=== PATIENT | female | born 1980 | race American Indian/Alaskan Native ===

== ENCOUNTER 2016-04-15 14:07 | Emergency (ER) | payer MEDICAID ==
[2016-04-15] MEDS ORDERED: TORADOL IM ONE (17:37)
[2016-04-15] MEDS ORDERED: DECADRON IM ONE (17:37)
[2016-04-15] MEDS ORDERED: FLEXERIL PO ONE (17:37)
--- NOTE | 2016-04-15 18:10 | Emergency Department Report ---
HPI - General Chief Complaint: Back Pain/Injury Time Seen by Provider: 04/15/16 17:27 - HPI HPI: 36-year-old female presents today with lower back pain that worsened 2 days ago. Patient has history of herniated disc and was diagnosed in October 2015. She states she hasn't followed up with her orthopedic/spine doctor since. Patient states that she has lower back pain on and off every day. Positive for radiation down right leg. Positive for history of sciatica. Tried Tylenol and ibuprofen without relief. Describes her pain as a 10 out of 10 constant, shooting, throbbing pain. Denies numbness, weakness, paresthesias. Denies recent injury or trauma. Denies bowel or bladder incontinence. Denies fever, chills, nausea, vomiting, chest pain, shortness of breath, abdominal pain, urinary symptoms. ED Past Medical Hx - Past Medical History Hx Hypertension: Yes Hx Asthma: Yes Additional medical history: fibroids. Chronic back pain - Surgical History Past Surgical History?: No - Social History Smoking Status: Never Smoker Substance Use Type: Marijuana - Medications Home Medications: Home Medications Medication Instructions Recorded Confirmed Last Taken Type Butalb/Acetaminophen/Caffeine 1 each PO Q6H PRN #25 capsule 08/21/14 03/18/15 Unknown Rx [Fioricet 50-300-40 mg Capsule] Lisinopril [Zestril TAB] 5 mg PO QHS #30 tablet 08/21/14 03/18/15 Unknown Rx Diazepam Tab [Valium] 5 mg PO Q8H PRN #21 tablet 03/19/15 Unknown Rx HYDROcodone/APAP 10-325 [[place] 1 each PO Q6HR PRN #30 tablet 03/19/15 Unknown Rx 10/325] Ibuprofen [Motrin 800 MG tab] 800 mg PO Q8HR #45 tablet 03/19/15 Unknown Rx methylPREDNISolone [Medrol] 4 mg PO QAM #1 packet 01/09/16 Unknown Rx traMADol [Ultram] 50 mg PO Q6HR PRN #20 tablet 01/09/16 Unknown Rx Cyclobenzaprine [Flexeril 10 MG 10 mg PO Q8H PRN #21 tablet 04/15/16 Unknown Rx TAB] Naproxen [Naprosyn] 500 mg PO BID #30 tablet 04/15/16 Unknown Rx Prednisone [predniSONE 10 mg 10 mg PO .TAPER #1 tab.ds.pk 04/15/16 Unknown Rx (6-Day Pack, 21 Tabs)] ED Review of Systems ROS: Stated complaint: BACK PAIN Other details as noted in HPI Constitutional: denies: chills, fever, malaise Eyes: denies: eye pain ENT: denies: ear pain, throat pain, congestion Respiratory: denies: cough, shortness of breath, wheezing Cardiovascular: denies: chest pain, palpitations Endocrine: no symptoms reported Gastrointestinal: denies: abdominal pain, nausea, vomiting Genitourinary: denies: urgency, dysuria, frequency, hematuria Musculoskeletal: back pain Neurological: denies: headache, weakness, numbness, paresthesias Physical Exam - Physical Exam Vital Signs: Vital Signs 04/15/16 04/15/16 14:19 17:19 Temperature 98.5 F 98.8 F Pulse Rate 105 H 100 H Respiratory 20 20 Rate Blood Pressure 136/85 Blood Pressure 130/88 [Right] O2 Sat by Pulse 99 100 Oximetry Physical Exam: GENERAL: The patient is well-developed and well-nourished. Patient is in NAD. HEAD: Normocephalic. Atraumatic. CHEST/LUNGS: Clear to auscultation throughout. HEART/CARDIOVASCULAR: Regular rate and rhythm. ABDOMEN: Abdomen is soft, nontender. No guarding or rebound tenderness. EXTREMITIES: Full ROM. Peripheral pulses intact. Capillary refill less than 2 seconds. BACK: Full ROM. Positive for midline tenderness lumbar region, chronic. Right- sided paraspinal tenderness of lumbar region. Tenderness to palpation of the right sciatic notch. Negative straight leg raise bilaterally. ED Course Vital Signs 04/15/16 04/15/16 14:19 17:19 Temperature 98.5 F 98.8 F Pulse Rate 105 H 100 H Respiratory 20 20 Rate Blood Pressure 136/85 Blood Pressure 130/88 [Right] O2 Sat by Pulse 99 100 Oximetry ED Medical Decision Making - Lab Data Vital Signs 04/15/16 04/15/16 14:19 17:19 Temperature 98.5 F 98.8 F Pulse Rate 105 H 100 H Respiratory 20 20 Rate Blood Pressure 136/85 Blood Pressure 130/88 [Right] O2 Sat by Pulse 99 100 Oximetry - Medical Decision Making 36-year-old female presents today with acute onset of chronic lower back pain with sciatica. Patient was given Flexeril, Toradol and Decadron and reported symptomatic relief. Patient is in no acute distress at this time. She will be discharged home and is encouraged to follow up with a primary care provider. She will be sent home on Flexeril, steroid pack and Naprosyn and] is encouraged to return to the emergency room for any worsening symptoms. Critical care attestation.: If time is entered above; I have spent that time in minutes in the direct care of this critically ill patient, excluding procedure time. ED Disposition Clinical Impression: Chronic lower back pain Qualifiers: Back pain laterality: midline Sciatica presence: without sciatica Qualified Code(s): M54.5 - Low back pain; G89.29 - Other chronic pain Sciatica Qualifiers: Laterality: right Qualified Code(s): M54.31 - Sciatica, right side Disposition: DISCHARGED TO HOME OR SELFCARE Is pt being admited?: No Does the pt Need Aspirin: No Condition: Stable Instructions: Chronic Back Pain (ED), Sciatica (ED) Additional Instructions: Follow-up with orthopedics for pain management. Return to the emergency department if symptoms worsen. Prescriptions: Cyclobenzaprine [Flexeril 10 MG TAB] 10 mg PO Q8H PRN #21 tablet PRN Reason: Muscle Spasm Naproxen [Naprosyn] 500 mg PO BID #30 tablet Prednisone [predniSONE 10 mg (6-Day Pack, 21 Tabs)] 10 mg PO .TAPER #1 tab.ds.pk Referrals: NETO PERES MD [Primary Care Provider] - 3-5 Days CHRISTIANA GAYLE MD [Staff Physician] - 3-5 Days Forms: Work/School Release Form(ED), Accompanied Note Time of Disposition: 18:11
[2016-04-15 18:45] VITALS: BP 124/82
== END 2016-04-15 18:45 | disposition home or self-care (01) ==
LOC: ED 14:07
DX: M54.31 Sciatica, right side (principal); M54.5 Low back pain; G89.29 Other chronic pain; I10 Essential (primary) hypertension; J45.909 Unspecified asthma, uncomplicated; F12.10 Cannabis abuse, uncomplicated
CPT/HCPCS: 96372; 99282; J1100; J1885

== ENCOUNTER 2017-02-25 13:33 | Emergency (ER) | payer MEDICAID ==
[2017-02-25 16:11] LABS: Hematocrit 38.1 % (30.3-42.9); Hemoglobin 12.8 gm/dl (10.1-14.3); Mean Corpuscular HGB Conc 34 % (30-34); Mean Corpuscular Hemoglobin 35 pg (28-32); Mean Corpuscular Volume 104 fl (79-97); Platelet Count 168 K/mm3 (140-440); Red Blood Count 3.68 M/mm3 (3.65-5.03); Red Cell Distribution Width 12.9 % (13.2-15.2)
--- NOTE | 2017-02-25 16:22 | Emergency Department Report ---
Chief Complaint: Back Pain/Injury Stated Complaint: BACK AND RIGHT SIDE PAIN Time Seen by Provider: 02/25/17 16:15 - HPI History of Present Illness: Patient with H/O chronic back pain due to herniated disc presents to ED with c/ o worsening pain with radiation into right leg, but states that today she had 1 episode of urinary incontinence; denies recent injuries or trauma, saddle paresthesias, bowel incontinence, dysuria, hematuria, abdominal pain, N/V/D, and vaginal bleeding or discharge - ROS Review of Systems: Negative except for those stated in HPI - Exam Vital Signs: Vital Signs 02/25/17 15:52 Temperature 99.1 F Pulse Rate 73 Respiratory 18 Rate Blood Pressure 117/71 O2 Sat by Pulse 100 Oximetry Physical Exam: Abdomen - soft, nontender, nondistended Ambulatory with antalgic gait MSE screening note: Focused history and physical exam performed. Due to findings the following was ordered: blood work and urine Patient to be seen by provider in Main ED ED Medical Decision Making - Lab Data Result diagrams: 02/25/17 16:00 ED Disposition for MSE Condition: Stable
[2017-02-25 16:31] LABS: Anion Gap 17 mmol/L; BUN/Creatinine Ratio 9; Blood Urea Nitrogen 8 mg/dL (7-17); Carbon Dioxide 26 mmol/L (22-30); Chloride 103.4 mmol/L (98-107); Glucose 74 mg/dL (65-100); Sodium 142 mmol/L (137-145)
[2017-02-25 18:26] LABS: Bilirubin,Urine NEG (Negative); Blood,Urine NEG (Negative); Ketones,Urine NEG (Negative); Leukocyte Esterase,Urine NEG (Negative); Mucus,Urine 2+ /HPF; Nitrite,Urine NEG (Negative); Protein,Urine <15 mg/dL mg/dL (Negative)
[2017-02-25] MEDS ORDERED: TYLENOL PO ONE (22:52)
[2017-02-25] MEDS ORDERED: TYLENOL ONE (22:55)
[2017-02-26] MEDS ORDERED: ZOFRAN IM ONE (02:23)
[2017-02-26] MEDS ORDERED: MORPHINE IM ONE (02:23)
--- NOTE | 2017-02-26 02:28 | Emergency Department Report ---
ED Back Pain/Injury HPI - General Chief Complaint: Back Pain/Injury Stated Complaint: BACK AND RIGHT SIDE PAIN Time Seen by Provider: 02/25/17 16:15 Source: patient Limitations: No Limitations - History of Present Illness Initial Comments: Patient is 37 years old female history of chronic lumbar pain, she is being evaluated by her spine doctor and MRI showed L5 and S1 disc herniation. She told me that she is waiting to be scheduled for surgery. Patient stated that for the last 2 weeks she has been having increased pain and one time she had an episode of unable to control her bladder but that went away. Patient is ambulating well no numbness or tingling sensation and no bowel incontinence. Denied fever, nausea or vomiting. No recent trauma. MD Complaint: back pain -: week(s) Similar Symptoms Previously: Yes Severity scale (0 -10): 8 Quality: sharp Consistency: constant Improves With: immobilization Worsens With: movement Associated Symptoms: denies other symptoms - Related Data Previous Rx's Medication Instructions Recorded Last Taken Type Butalb/Acetaminophen/Caffeine 1 each PO Q6H PRN #25 capsule 08/21/14 Unknown Rx [Fioricet 50-300-40 mg Capsule] Lisinopril [Zestril TAB] 5 mg PO QHS #30 tablet 08/21/14 Unknown Rx Diazepam Tab [Valium] 5 mg PO Q8H PRN #21 tablet 03/19/15 Unknown Rx HYDROcodone/APAP 10-325 [[place] 1 each PO Q6HR PRN #30 tablet 03/19/15 Unknown Rx 10/325] Ibuprofen [Motrin 800 MG tab] 800 mg PO Q8HR #45 tablet 03/19/15 Unknown Rx methylPREDNISolone [Medrol] 4 mg PO QAM #1 packet 01/09/16 Unknown Rx traMADol [Ultram] 50 mg PO Q6HR PRN #20 tablet 01/09/16 Unknown Rx Cyclobenzaprine [Flexeril 10 MG 10 mg PO Q8H PRN #21 tablet 04/15/16 Unknown Rx TAB] Naproxen [Naprosyn] 500 mg PO BID #30 tablet 04/15/16 Unknown Rx Prednisone [predniSONE 10 mg 10 mg PO .TAPER #1 tab.ds.pk 04/15/16 Unknown Rx (6-Day Pack, 21 Tabs)] Ondansetron [Zofran Odt] 4 mg PO Q8HR PRN #14 tab.rapdis 02/26/17 Unknown Rx Prednisone [predniSONE 10 mg 10 mg PO .TAPER #1 tab.ds.pk 02/26/17 Unknown Rx (6-Day Pack, 21 Tabs)] oxyCODONE /ACETAMINOPHEN [Percocet 1 tab PO Q6HR PRN #14 tablet 02/26/17 Unknown Rx 5/325] Allergies Allergy/AdvReac Type Severity Reaction Status Date / Time No Known Allergies Allergy Verified 08/21/14 00:46 ED Review of Systems ROS: Stated complaint: BACK AND RIGHT SIDE PAIN Other details as noted in HPI Comment: All other systems reviewed and negative Constitutional: denies: chills, fever Respiratory: denies: cough, orthopnea, shortness of breath, SOB with exertion Cardiovascular: denies: chest pain, palpitations, dyspnea on exertion Gastrointestinal: denies: abdominal pain, nausea, vomiting, diarrhea, hematemesis Genitourinary: denies: urgency, dysuria, frequency, hematuria Musculoskeletal: back pain Neurological: paresthesias. denies: headache, weakness, numbness, confusion, abnormal gait, vertigo ED Past Medical Hx - Past Medical History Hx Hypertension: Yes Hx Asthma: Yes Additional medical history: fibroids. Chronic back pain - Social History Smoking Status: Unknown if ever smoked Substance Use Type: None - Medications Home Medications: Home Medications Medication Instructions Recorded Confirmed Last Taken Type Butalb/Acetaminophen/Caffeine 1 each PO Q6H PRN #25 capsule 08/21/14 03/18/15 Unknown Rx [Fioricet 50-300-40 mg Capsule] Lisinopril [Zestril TAB] 5 mg PO QHS #30 tablet 08/21/14 03/18/15 Unknown Rx Diazepam Tab [Valium] 5 mg PO Q8H PRN #21 tablet 03/19/15 Unknown Rx HYDROcodone/APAP 10-325 [[place] 1 each PO Q6HR PRN #30 tablet 03/19/15 Unknown Rx 10/325] Ibuprofen [Motrin 800 MG tab] 800 mg PO Q8HR #45 tablet 03/19/15 Unknown Rx methylPREDNISolone [Medrol] 4 mg PO QAM #1 packet 01/09/16 Unknown Rx traMADol [Ultram] 50 mg PO Q6HR PRN #20 tablet 01/09/16 Unknown Rx Cyclobenzaprine [Flexeril 10 MG 10 mg PO Q8H PRN #21 tablet 04/15/16 Unknown Rx TAB] Naproxen [Naprosyn] 500 mg PO BID #30 tablet 04/15/16 Unknown Rx Prednisone [predniSONE 10 mg 10 mg PO .TAPER #1 tab.ds.pk 04/15/16 Unknown Rx (6-Day Pack, 21 Tabs)] Ondansetron [Zofran Odt] 4 mg PO Q8HR PRN #14 tab.rapdis 02/26/17 Unknown Rx Prednisone [predniSONE 10 mg 10 mg PO .TAPER #1 tab.ds.pk 02/26/17 Unknown Rx (6-Day Pack, 21 Tabs)] oxyCODONE /ACETAMINOPHEN [Percocet 1 tab PO Q6HR PRN #14 tablet 02/26/17 Unknown Rx 5/325] ED Physical Exam - General Limitations: No Limitations General appearance: alert, in no apparent distress - Head Head exam: Present: atraumatic, normocephalic - Eye Eye exam: Present: normal appearance, PERRL - ENT ENT exam: Present: normal exam, normal orophraynx, mucous membranes moist - Neck Neck exam: Present: normal inspection, full ROM. Absent: tenderness, meningismus, lymphadenopathy, thyromegaly - Respiratory Respiratory exam: Present: normal lung sounds bilaterally. Absent: respiratory distress, wheezes, rales, rhonchi, stridor, chest wall tenderness, accessory muscle use, decreased breath sounds, prolonged expiratory - Cardiovascular Cardiovascular Exam: Present: regular rate, normal rhythm, normal heart sounds - GI/Abdominal GI/Abdominal exam: Present: soft, normal bowel sounds. Absent: distended, tenderness, guarding, rebound, rigid, organomegaly, mass, bruit, pulsatile mass , hernia - Rectal Rectal exam: Present: other (no saddle anesthesia) - Extremities Exam Extremities exam: Present: normal inspection, full ROM, normal capillary refill , other (lower extremity exam showed no evidence of motor deficit or sensory deficit, reflexes are normal.). Absent: tenderness, pedal edema, joint swelling , calf tenderness - Back Exam Back exam: Present: normal inspection, full ROM, tenderness, paraspinal tenderness. Absent: CVA tenderness (R), CVA tenderness (L), muscle spasm, vertebral tenderness, rash noted - Neurological Exam Neurological exam: Present: alert, oriented X3, CN II-XII intact, normal gait, reflexes normal. Absent: abnormal gait, motor sensory deficit - Skin Skin exam: Present: warm, intact, normal color ED Course Vital Signs 02/25/17 02/25/17 02/26/17 15:52 22:49 02:42 Temperature 99.1 F 98.2 F Pulse Rate 73 66 Respiratory 18 18 18 Rate Blood Pressure 117/71 125/87 O2 Sat by Pulse 100 Oximetry 02/26/17 03:00 Temperature Pulse Rate Respiratory 16 Rate Blood Pressure O2 Sat by Pulse 99 Oximetry - Reevaluation(s) Reevaluation #1: 02/26/17 05:02 This is stated that she is feeling much better after the pain medicine, she ambulated to the bathroom was no difficulty. No evidence of a cauda equina syndrome. ED Medical Decision Making - Lab Data Result diagrams: 02/25/17 16:00 02/25/17 16:00 - Radiology Data Radiology results: report reviewed EXAM: CT LUMBAR SPINE WO CON HISTORY: back pain, TECHNIQUE: Routine axial imaging was obtained of the lumbar spine without IV contrast with sagittal and coronal reconstructions. FINDINGS: At the L5-S1 level there is mild narrowing of the disc. There is right parasagittal soft tissue fullness abutting the thecal sac with localized calcification. The findings suspicious for a disc herniation. At the L4-5 level the disc height is preserved. There is central bulging of the disc annulus. There is mild left-sided facet arthropathy changes. The upper lumbar discs appear normal height. The canal size is normal at these levels. There is no evidence of fracture. The surrounding soft tissues otherwise appear well maintained IMPRESSION: Mild narrowing of the L5-S1 disc with probable right parasagittal disc herniation abutting the thecal sac. MRI of the lumbar spine is recommended for better overall evaluation. Central bulging of the L4-5 disc annulus. No evidence of fracture. Transcribed By: RB Dictated By: CHRISTIAN DOMINGUEZ MD Electronically Authenticated By: CHRISTIAN DOMINGUEZ MD Signed Date/Time: 02/25/17 3398 - Medical Decision Making I discussed with the patient a CT lumbar results which she should disc herniation and I told the patient that she will need any immediate attention by her spine doctor, patient stated that she will call her doctor immediately in the morning after she leaves from here, she told me that her doctor told that she will need surgery. Critical care attestation.: If time is entered above; I have spent that time in minutes in the direct care of this critically ill patient, excluding procedure time. ED Disposition Clinical Impression: Lumbar radiculopathy, acute Disposition: DC-01 TO HOME OR SELFCARE Is pt being admited?: No Condition: Stable Instructions: Lumbar Disc Herniation (ED) Prescriptions: Ondansetron [Zofran Odt] 4 mg PO Q8HR PRN #14 tab.rapdis PRN Reason: Nausea And Vomiting oxyCODONE /ACETAMINOPHEN [Percocet 5/325] 1 tab PO Q6HR PRN #14 tablet PRN Reason: Pain Prednisone [predniSONE 10 mg (6-Day Pack, 21 Tabs)] 10 mg PO .TAPER #1 tab.ds.pk Referrals: PRIMARY CARE, [Primary Care Provider] - 3-5 Days
--- NOTE | 2017-02-26 03:59 | Cat Scan Report ---
FINAL REPORT EXAM: CT LUMBAR SPINE WO CON HISTORY: back pain, TECHNIQUE: Routine axial imaging was obtained of the lumbar spine without IV contrast with sagittal and coronal reconstructions. FINDINGS: At the L5-S1 level there is mild narrowing of the disc. There is right parasagittal soft tissue fullness abutting the thecal sac with localized calcification. The findings suspicious for a disc herniation. At the L4-5 level the disc height is preserved. There is central bulging of the disc annulus. There is mild left-sided facet arthropathy changes. The upper lumbar discs appear normal height. The canal size is normal at these levels. There is no evidence of fracture. The surrounding soft tissues otherwise appear well maintained IMPRESSION: Mild narrowing of the L5-S1 disc with probable right parasagittal disc herniation abutting the thecal sac. MRI of the lumbar spine is recommended for better overall evaluation. Central bulging of the L4-5 disc annulus. No evidence of fracture.
[2017-02-26 06:01] VITALS: BP 121/64
== END 2017-02-26 06:02 | disposition home or self-care (01) ==
LOC: ED 13:33
DX: M54.16 Radiculopathy, lumbar region (principal); I10 Essential (primary) hypertension; J45.909 Unspecified asthma, uncomplicated
CPT/HCPCS: 36415; 72131; 80048; 81001; 81025; 85027; 96372; 99284; J2270; J2405; J2930

== ENCOUNTER 2017-04-30 07:56 | Emergency (ER) | payer MEDICAID ==
[2017-04-30 08:09] VITALS: BP 124/66
[2017-04-30] MEDS ORDERED: TORADOL IM ONE (11:05)
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
== END 2017-04-30 11:22 | disposition home or self-care (01) ==
LOC: ED 07:56
DX: M54.41 Lumbago with sciatica, right side (principal); J45.909 Unspecified asthma, uncomplicated; G89.29 Other chronic pain; I10 Essential (primary) hypertension; F17.200 Nicotine dependence, unspecified, uncomplicated
CPT/HCPCS: 96372; 99282; J1885

== ENCOUNTER 2020-12-08 15:33 | Emergency (ER) | payer MEDICAID | END 2020-12-08 20:10 | disposition left against medical advice (07) | LOC: ED 15:33 | DX: M54.9 Dorsalgia, unspecified (principal); Z53.21 Procedure and treatment not carried out due to patient leaving prior to being seen by health care provider ==

== ENCOUNTER 2020-12-12 11:46 | Emergency (ER) | payer MEDICAID ==
[2020-12-12] MEDS ORDERED: fentaNYL 100 MCG/2 ML INJ IM ONE (13:15)
[2020-12-12] MEDS ORDERED: ONDANSETRON 4 MG/2 ML INJ IM ONE (13:15)
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
[2020-12-12 13:58] LABS: Eosinophils % (Auto) 0.5 % (0.0-4.3)
[2020-12-12 14:03] LABS: Hematocrit 40.4 % (30.3-42.9); Hemoglobin 13.7 gm/dl (10.1-14.3); Lymphocytes # (Auto) 1.6 K/mm3 (1.2-5.4); Lymphocytes % (Auto) 30.3 % (13.4-35.0); Mean Corpuscular HGB Conc 34 % (30-34); Mean Corpuscular Volume 103 fl (79-97); Monocytes # (Auto) 0.6 K/mm3 (0.0-0.8); Platelet Count 171 K/mm3 (140-440); Red Blood Count 3.91 M/mm3 (3.65-5.03); Red Cell Distribution Width 12.9 % (13.2-15.2)
[2020-12-12 15:03] LABS: Blood Urea Nitrogen 6 mg/dL (7-17); Hemolysis Index 19
[2020-12-12 15:28] LABS: BUN/Creatinine Ratio 9
--- NOTE | 2020-12-12 15:41 | XRay Report ---
CHEST 2 VIEWS INDICATION: chest pain. COMPARISON: None FINDINGS: Support devices: None. Heart: Within normal limits. Lungs/pleura: No acute air space or interstitial disease. No pneumothorax. Additional findings: None. IMPRESSION: Normal chest x-ray Signer Name: Ahmet Rich Jr, MD Signed: 12/12/2020 3:37 PM Workstation Name: [id number]
[2020-12-12] MEDS ORDERED: HYDROcodone/ACETAMINOPHEN 5-325 MG TAB PO ONE (15:43)
--- NOTE | 2020-12-12 15:43 | XRay Report ---
LUMBAR SPINE 3 VIEWS INDICATION: Pain in lumbar spine. COMPARISON: Lumbar spine series from 07/15/2015. FINDINGS: [place]: No acute fracture. Normal alignment. DISC SPACES: No significant abnormality. FACET JOINTS: No significant abnormality. SOFT TISSUES: No significant abnormality. ADDITIONAL FINDINGS: No additional significant findings. IMPRESSION: 1. No acute findings. Signer Name: Hao Johnston MD Signed: 12/12/2020 3:38 PM Workstation Name: [id number]
[2020-12-12 15:45] LABS: Bilirubin,Urine NEG (Negative); Blood,Urine MOD (Negative); Color,Urine Yellow (Yellow); Mucus,Urine 3+ /HPF; Protein,Urine <15 mg/dL mg/dL (Negative)
[2020-12-12 16:57] VITALS: BP 123/72
--- NOTE | 2020-12-13 11:38 | Electrocardiograph Report ---
[facility] Test Date: 2020-12-12 Test Time: 12:05:17 Pat Name: THANH KELLY Department: Room: Gender: F Harbor Engineer: CATINA BEAUCHAMPB: 1980 Requested By: LISS BALL Order Number: [id number] Reading MD: Bola Parikh Measurements Intervals [place] Rate: 86 P: 68 SC: 143 QRS: 34 QRSD: 97 T: 63 QT: 362 QTc: 434 Interpretive Statements Sinus rhythm Probable left atrial enlargement RSR' IN V1 OR V2, PROBABLY NORMAL VARIANT No previous ECG available for comparison Electronically Signed On 12-13-2020 11:38:18 EDT by Bola Parikh
== END 2020-12-12 16:58 | disposition home or self-care (01) ==
LOC: ED 11:46
DX: M54.5 Low back pain (principal); R07.89 Other chest pain; N39.0 Urinary tract infection, site not specified; I10 Essential (primary) hypertension; J45.909 Unspecified asthma, uncomplicated
CPT/HCPCS: 36415; 71046; 72100; 80048; 81001; 82550; 82553; 83690; 84484; 84703; 85025; 85379; 87086; 93005; 96372; 99284; J2405; J3010